=== PATIENT | female | born 1955 | race Caucasian/White ===

== ENCOUNTER → 2016-07-21 14:11 | Outpatient (CLI) | payer MEDICAID ==
[2016-02-01 13:14] VITALS: BMI 26.8
[~2016-07-21 14:11] MED LIST: ADVAIR HFA 230-12 GM INH; HYDROCODONE-APA1 TAB PO; NICODERM C1 PATCH .3 TRANSDERM; ORAPRED ODT10 MG/TAB PO; PROAIR HFA8.5 GM INH
== END | disposition home or self-care (01) ==
LOC: D.LABREF 14:11
DX: Z86.14 Personal history of Methicillin resistant Staphylococcus aureus infection (principal)

== ENCOUNTER 2016-11-04 16:17 | Inpatient (IN) | payer MEDICAID ==
[~2016-11-04] VITALS: Ht 157.5 cm; Wt 69.1 kg
[2016-11-04 17:02] LABS: BASOPHILS 2.3 % (0-2); EOSINOPHILS 3.8 % (0-7); HEMATOCRIT 43.4 % (36.0-48.0); HEMOGLOBIN 14.7 g/dL (12-16); IMMATURE GRANULOCYTES 0.4 % (0-5); LYMPHOCYTES 14.5 % (15-50); MCH 36.8 pg (26.0-34.0); MCHC 33.9 g/dL (31.0-37.0); MCV 108.5 fL (80.0-100.0); MONOCYTES 16.2 % (2-11); NEUTROPHILS 62.8 % (40-80); PLATELET COUNT 65 10x3/uL (130-400); RDW 13.9 % (11.5-14.5); WBC 5.6 10x3/uL (4.8-10.8)
[2016-11-04 17:15] LABS: ALBUMIN 3.3 g/dL (3.4-5.0); ALKALINE PHOSPHATASE 222 U/L (46-116); ALT (SGPT) 26 U/L (10-68); BILIRUBIN - TOTAL 2.74 mg/dL (0.2-1.3); CALC OSMOLALITY 278 mosm/kg (275-300); CARBON DIOXIDE 24.3 mmol/L (21.0-32.0); CHLORIDE - SERUM 103 mmol/L (98-107); CREATININE - SERUM 0.7 mg/dL (0.6-1.3); GLUCOSE 120 mg/dL (74-106); POTASSIUM - SERUM 3.8 mmol/L (3.5-5.1); PROTEIN - SERUM 8.8 g/dL (6.4-8.2); SODIUM 140 mmol/L (136-145); UREA NITROGEN 9 mg/dL (7-18); eGFR NON AFRICAN AMERICAN 90 mL/min (90-120)
[2016-11-04 18:05] LABS: PLATELET ESTIMATE DECREASED
--- NOTE | 2016-11-04 21:16 | NUR ---
arrived to room 2225 via wc accompained by family and hospital staff. resp even and unlabored at this time with O2 in use via high flow oxymizer @ 11 l/m. C/O abd pain rating 9/10. can can voice needs and wants. assessment completed. family at bedside. c/l in reach at bedside.
[2016-11-04 23:25] VITALS: Ht 157.5 cm; Wt 69.1 kg
[2016-11-05] VITALS: BP 142/74
[2016-11-05 04:00] VITALS: BP 135/79
--- NOTE | 2016-11-05 07:05 | NUR ---
PATIENT RECEIVED ALERT IN LOW GALVEZ POSITION. RESPIRATIONS EVEN AND UNLABORED. DENIES NEEDS. SIDE RAILS UP X2. BED IN LOW POSITION. CALL LIGHT IN REACH.
[2016-11-05 08:22] VITALS: BP 135/71
--- NOTE | 2016-11-05 11:14 | NUR ---
PATIENT ALERT IN BED WATCHING TV. NO SIGNS OF DISTRESS NOTED. NICOTINE PATCH PLACED ON RIGHT ARM. DENIES NEEDS. SIDE RAILS UP X2. BED IN LOW POSITION. CALL LIGHT IN REACH.
[2016-11-05] MEDS ORDERED: ATIVAN1 MG PO (11:20)
--- NOTE | 2016-11-05 13:00 | NUR ---
PATIENT OFF FLOOR VIA WHEELCHAIR WITH SISTER.
[2016-11-05 14:04] VITALS: BP 145/79
--- NOTE | 2016-11-05 14:25 | NUR ---
IV TO RIGHT WRIST PATENT. NO REDNESS OR INFLAMMATION NOTED. FLUSHES EASY. SCHEDULED SOLU-MEDROL ADMINISTERED. SIDE RAILS UP X2. BED IN LOW POSITION. CALL LIGHT IN REACH. FAMILY AT BEDSIDE.
--- NOTE | 2016-11-05 14:39 | NUR ---
PATIENT REQUESTING SOMETHING FOR SLEEP. DR COVARRUBIAS PAGED. RETURNED CALL. ORDER FOR MEGHA RECEIVED.
[2016-11-05 16:45] VITALS: BP 152/90
--- NOTE | 2016-11-05 18:00 | NUR ---
PATIENT UP AMBULATING IN HALLWAY WITH FAMILY. NO SIGNS OF DISTRESS NOTED.
[2016-11-05 20:22] VITALS: BP 142/80
--- NOTE | 2016-11-05 22:29 | NUR ---
PATIENT RESTING IN BED WITH NO VISIBLE SIGNS OF DISTRESS. NOTIFIED MNOAE HIGGINS THAT THE PATIENT WOULD LIKE HER AMBIEN. PATIENT DENIES OTHER NEEDS AT THIS TIME. BED IN LOWEST POSITION AND CALL LIGHT WITHIN REACH. ENCOURAGED THE PATIENT TO CALL IF SHE HAS FURTHER NEEDS.
--- NOTE | 2016-11-05 23:49 | NUR ---
PT WAS MEDICATED WITH AMBIEN PER REQUEST AT THIS TIME. WILL CONTINUE TO OBSERVE FOR NEEDS. C/L IN REACH AT BEDSIDE.
[2016-11-06] VITALS: BP 130/88
[2016-11-06 04:00] VITALS: BP 120/64
[2016-11-06 04:51] LABS: BASOPHILS 0 % (0-2); EOSINOPHILS 0 % (0-7); HEMATOCRIT 40.1 % (36.0-48.0); HEMOGLOBIN 13.5 g/dL (12-16); IMMATURE GRANULOCYTES 0.3 % (0-5); LYMPHOCYTES 2.9 % (15-50); MCH 36.3 pg (26.0-34.0); MCHC 33.7 g/dL (31.0-37.0); MCV 107.8 fL (80.0-100.0); MEAN PLATELET VOLUME 11.9 fL (7.4-10.4); MONOCYTES 5.7 % (2-11); NEUTROPHILS 91.1 % (40-80); PLATELET COUNT 56 10x3/uL (130-400); RBC 3.72 10x6/uL (4.00-5.40); RDW 13.8 % (11.5-14.5)
[2016-11-06 04:54] LABS: WBC 10.7 10x3/uL (4.8-10.8)
[2016-11-06 05:09] LABS: CALCIUM 9.1 mg/dL (8.5-10.1); CARBON DIOXIDE 26.4 mmol/L (21.0-32.0); CHLORIDE - SERUM 102 mmol/L (98-107); CREATININE - SERUM 0.7 mg/dL (0.6-1.3); MAGNESIUM - SERUM 1.9 mg/dL (1.8-2.4); POTASSIUM - SERUM 3.8 mmol/L (3.5-5.1); SODIUM 138 mmol/L (136-145); eGFR NON AFRICAN AMERICAN 90 mL/min (90-120)
[2016-11-06 05:10] LABS: CALC OSMOLALITY 282 mosm/kg (275-300); GLUCOSE 202 mg/dL (74-106); UREA NITROGEN 16 mg/dL (7-18)
--- NOTE | 2016-11-06 07:20 | NUR ---
PATIENT RECEIVED ALERT IN HIGH GALVEZ POSITION. RESPIRATIONS EVEN AND UNLABORED. ANTICIPATING GOING HOME TODAY. DENIES NEEDS. SIDE RAILS UP X2. BED IN LOW POSITION. CALL LIGHT IN REACH.
[2016-11-06 07:38] VITALS: BP 124/59
--- NOTE | 2016-11-06 08:18 | NUR ---
PATIENT ALERT IN HIGH GALVEZ POSITION. RESPIRATIONS EVEN AND UNLABORED. SCHEDULED MEDICATION ADMINISTERED. RT AT BEDSIDE. PATIENT PLACED ON 5L NASAL CANNULA. O2 AT 91%. SIDE RAILS UP X2. BED IN LOW POSITION. CALL LIGHT IN REACH.
--- NOTE | 2016-11-06 09:07 | NUR ---
PATIENT WAS WALKING IN HALLWAY SPO2 DROPPED TO 84% WHILE ON ROOM AIR. PATIENT PLACED BACK ON 9L OXIMIZER TO GET SPO2 BACK TO 91%.
--- NOTE | 2016-11-06 09:30 | NUR ---
PATIENT AMBULATED 250FT IN HALLWAY WITH STAFF. 02 AT 6L VIA NASAL CANNULA. 02 SAT REMAINED BETWEEN 85% AND 86%. PATIENT STATES THAT IS NORMAL FOR HER. ONCE BACK TO ROOM PATIENT SITTING ON SIDE OF 02 SAT RECOVERED TO 93% ON 5L O2 VIA NASAL CANNULA. GOGO DENISE PATIENT LAW INSTRUCTOR NOTIFIED AND WILL NOTIFY DR ALVAREZ
[2016-11-06] MEDS ORDERED: VIBRAMYCIN 100100 MG PO (09:53)
[2016-11-06] MEDS ORDERED: MEDROL DOSE PACK4 MG PO (09:54)
--- NOTE | 2016-11-06 10:30 | NUR ---
IV TO RIGHT WRIST D/C WITH CATH TIP INTACT. SITE COVERED WITH GAUZE AND BANDAID. ANTICIPATING D/C HOME.
--- NOTE | 2016-11-06 11:15 | NUR ---
Patient Name: BLANCA MCGILL Admission Status: ER Accout number: [id number] Admission Date: 11-04-2016 : 1955 Admission Diagnosis: Attending: AVERY Current LOS: 2 Anticipated DC Date: 11-06-2016 Planned Disposition: Home Primary Insurance: [place] PRIVATE OPTIONS VAN[place] Discharge Planning Comments: CM MET WITH PATIENT REGARDING D/C NEEDS AND PLANS. PATIENT STATED HER SISTER (NIMESH) WILL BE DRIVING HER HOME TODAY AT DISCHARGE. PATIENT STATED THERE ARE 5 STEPS W/ RAILS TO ENTER HOME AND NO STAIRS INSIDE. PATIENTS PCP IS DR. ALVAREZ AND PHARMACY IS [facility] [address]. PATIENT IS INDEPENDENT WITH HER CARE. PATIENT HAS OXYGEN AT HOME PROVIDED BY [facility] AND THEY ARE PROVIDING PORTABLE O2 TO PATIENT BEFORE DISCHARGE. PATIENT HAS REFUSED HOME HEALTH AND HAS NO OTHER NEEDS. CM WILL CONTINUE TO FOLLOW PATIENT WITH D/C NEEDS AND PLANS. PCP DR. ALVAREZ PHARMACY IS [facility] [address]- [phone] CASI PARSON (DAUGHTER) [phone] Polymerization Kettle Operator: Adina Riuz Is the patient Alert and Oriented? Yes 0 * How many steps to enter\exit or inside your home? 5 W/RAILS 0 * PCP DR. ALVAREZ 0 * Pharmacy [facility] [address] 0 * Preadmission Environment Home with Family 0 * ADLs Independent 0 * Equipment Oxygen 0 * List name and contact numbers for known caregivers / representatives who currently or will assist patient after discharge: CASI PARSON (DAUGHTER) [phone] 0 * Community resources currently utilized None 0 * Additional services required to return to the preadmission environment? Yes 0 * Can the patient safely return to the preadmission environment? Yes 0 * Has this patient been hospitalized within the prior 30 days at any hospital? No 0 Grand Total: 0
[2016-11-06 12:00] VITALS: BP 123/69
--- NOTE | 2016-11-06 12:23 | NUR ---
DISCHARGE INSTRUCTIONS COMPLETED WITH PATIENT. ENOURAGED PATIENT TO PURCHASE A PULSE OXYMETER. CHECKED OXYGEN SATURATION 91% ON 4L/ NASAL CANNULA. PATIENT AND FAMILY ALL DENY QUESTIONS.
== END 2016-11-06 12:23 | disposition home or self-care (01) | DRG 191 ==
LOC: D.ER 16:17 → D.MS 19:52
PROVIDERS: Emergency Medicine; Family Medicine; ADMIT Family Medicine
DX: J44.1 Chronic obstructive pulmonary disease with (acute) exacerbation (principal); C34.90 Malignant neoplasm of unspecified part of unspecified bronchus or lung; R09.02 Hypoxemia; F17.200 Nicotine dependence, unspecified, uncomplicated

== ENCOUNTER 2017-03-12 11:34 | Inpatient (IN) | payer MEDICAID ==
[~2017-03-12] VITALS: Ht 157.5 cm; Wt 71.2 kg
[~2017-03-12 11:34] MED LIST changes: +ATIVAN1 MG PO; +MEDROL DOSE PACK4 MG PO; +VIBRAMYCIN 100100 MG PO
[2017-03-12] MEDS ORDERED: ADVAIR HFA [SP]12 GM INH (12:01)
--- NOTE | 2017-03-12 12:15 | NUR ---
ARRIVE TO ROOM VIA WHEELCHAIR FROM DOCTOR'S OFFICE. COMPLAINS OF CHEST PAIN. CLAIMS DOG JUMPED ON CHEST DISLODGING RT CHEST IP RESULTING IN SEVERE CHEST PAIN AND DYSPNEA. O2 SAT 82% ON 5L NC. REQUEST RESPIRATORY ASSISTANCE. NON REBREATHER MASK PLACED AT 15L TO INCREASE O2 AT 94%. TAKEN TO CT SCAN ORDERED. CONTINUE PLAN OF CARE. AND ADMISSION PROCESS.
[2017-03-12 12:19] LABS: BASOPHILS 0.8 % (0-2); EOSINOPHILS 3.2 % (0-7); HEMATOCRIT 40.2 % (36.0-48.0); HEMOGLOBIN 13.3 g/dL (12-16); LYMPHOCYTES 18.9 % (15-50); MCH 33.3 pg (26.0-34.0); MCHC 33.1 g/dL (31.0-37.0); MCV 100.5 fL (80.0-100.0); MEAN PLATELET VOLUME 10.1 fL (7.4-10.4); MONOCYTES 3.6 % (2-11); NEUTROPHILS 73.5 % (40-80); RDW 14.7 % (11.5-14.5)
[2017-03-12 12:27] LABS: PLATELET COUNT 68 10x3/uL (130-400)
[2017-03-12 12:43] LABS: ALBUMIN 3.5 g/dL (3.4-5.0); ALKALINE PHOSPHATASE 211 U/L (46-116); ALT (SGPT) 19 U/L (10-68); BILIRUBIN - TOTAL 3.02 mg/dL (0.2-1.3); CALC OSMOLALITY 277 mosm/kg (275-300); CALCIUM 9.3 mg/dL (8.5-10.1); CARBON DIOXIDE 20.3 mmol/L (21.0-32.0); CHLORIDE - SERUM 106 mmol/L (98-107); CREATININE - SERUM 0.7 mg/dL (0.6-1.3); POTASSIUM - SERUM 4.2 mmol/L (3.5-5.1); PROTEIN - SERUM 7.8 g/dL (6.4-8.2); SODIUM 139 mmol/L (136-145); UREA NITROGEN 10 mg/dL (7-18); eGFR NON AFRICAN AMERICAN 90 mL/min (90-120)
[2017-03-12 12:44] LABS: GLUCOSE 122 mg/dL (74-106)
[2017-03-12 13:34] VITALS: BP 122/68
[2017-03-12 17:28] VITALS: BP 154/81
[2017-03-12 17:58] VITALS: BP 122/68; BMI 15.2
[2017-03-12 19:00] VITALS: BP 96/63
[2017-03-12 19:44] LABS: ERYTHROCYTE SEDIMENTATION RATE 38 mm/hr (0-30)
--- NOTE | 2017-03-12 21:57 | NUR ---
DR. ANDREA NOTIFIED OF D-DIMER GREATER THAN 20. NO NEW ORDERS. PT EDUCATED ON RISKS OF REFUSING LOVENOX INJECTION WITH A LAB VALUE OF THIS HIGH AND AGREES TO TAKE THE SHOT. LOVENOX 60MG GIVEN TO LUQ.
[2017-03-13] VITALS: BP 110/63
--- NOTE | 2017-03-13 02:53 | NUR ---
CALL LIGHT IN REACH, WILL CONTINUE WITH PLAN OF CARE.
[2017-03-13 04:00] VITALS: BP 146/92
--- NOTE | 2017-03-13 05:09 | NUR ---
INFUSAPORT ACCESSED TO RIGHT SHOULDER. 3/4" NEEDLE USING STERILE TECHNIQUE. LAB OBTAINED. DILAUDID 1MG IVP GIVEN FOR PAIN 7:10. CALL LIGHT IN REACH. WILL CONTINUE TO MONITOR.
[2017-03-13 07:01] LABS: ALKALINE PHOSPHATASE 192 U/L (46-116); ALT (SGPT) 18 U/L (10-68); BILIRUBIN - TOTAL 2.69 mg/dL (0.2-1.3); CALC OSMOLALITY 283 mosm/kg (275-300); CALCIUM 8.9 mg/dL (8.5-10.1); CHLORIDE - SERUM 106 mmol/L (98-107); CREATININE - SERUM 0.7 mg/dL (0.6-1.3); GLUCOSE 161 mg/dL (74-106); POTASSIUM - SERUM 4.2 mmol/L (3.5-5.1); PROTEIN - SERUM 7.4 g/dL (6.4-8.2); SODIUM 141 mmol/L (136-145); UREA NITROGEN 12 mg/dL (7-18); eGFR NON AFRICAN AMERICAN 90 mL/min (90-120)
[2017-03-13 08:00] VITALS: BP 130/73
[2017-03-13 08:02] LABS: BASOPHILS 0.4 % (0-2); EOSINOPHILS 0.2 % (0-7); HEMATOCRIT 37.8 % (36.0-48.0); HEMOGLOBIN 11.9 g/dL (12-16); IMMATURE GRANULOCYTES 0.2 % (0-5); LYMPHOCYTES 4.6 % (15-50); MCH 32.2 pg (26.0-34.0); MCHC 31.5 g/dL (31.0-37.0); MCV 102.4 fL (80.0-100.0); MEAN PLATELET VOLUME 11.6 fL (7.4-10.4); NEUTROPHILS 92.6 % (40-80); PLATELET COUNT 64 10x3/uL (130-400); RBC 3.69 10x6/uL (4.00-5.40); RDW 14.8 % (11.5-14.5); WBC 5.4 10x3/uL (4.8-10.8)
[2017-03-13 12:00] VITALS: BP 121/73
[2017-03-13 16:00] VITALS: BP 115/61
[2017-03-13 19:00] VITALS: BP 133/71
--- NOTE | 2017-03-13 19:30 | NUR ---
RECIEVED PT IN BED AAOX4 DEINIES ANY NEEDS OR DISCOMFORT NAD NOTED
--- NOTE | 2017-03-13 19:30 | NUR ---
RECEIVED PT IN BED AAOX4 RESP UNLABORED DENIES ANY NEEDS OR DISCOMFORT NAD NOTED
[2017-03-14 04:00] VITALS: BP 127/74
--- NOTE | 2017-03-14 08:45 | NUR ---
Report recieved from RN. Pt to move to 2100.
--- NOTE | 2017-03-14 09:28 | NUR ---
ALERT AND ORIENTED X4. INITIATE PAIN MANAGEMENT. CHANGE DILAUDID TO AIRPORT OPERATIONS SUPERVISOR PER . SHINGLES OUT BREAK. MOVE TO ROOM 210 NEGATIVE PRESSURE ROOM. MONAE MARTINEZ RESUMES PLAN OF CARE.
[2017-03-14 11:18] LABS: ANA REFLEX - DIRECT Negative (Negative)
[2017-03-14 12:00] VITALS: BP 124/68
--- NOTE | 2017-03-14 12:54 | NUR ---
Requested RN to initiate PAN SHOVER for pt pain needs.
--- NOTE | 2017-03-14 13:26 | NUR ---
Spoke to Valente in pharmacy to request saline nasal spray.
--- NOTE | 2017-03-14 13:28 | NUR ---
INITIATED PTS IV STRAIGHT KNIFE CUTTER MACHINE PUMP ORDERED. PT GRIMANCING FOR PAIN 04/10 ALSO PROVIDED BOLUS DOSE OF 0.4MG STRAIGHT KNIFE CUTTER MACHINE DILAUDID. PUMP INFUSING VIA R.CHEST IP. PT VOICED THANKS AND DENIES ANY FURTHER NEEDS AT THIS TIME. WILL CTM.
--- NOTE | 2017-03-14 13:46 | NUR ---
Pt states she is pain free at this moment after receiving bolus from CALTRANS EQUIPMENT OPERATOR when it was initiated. Family present at bedside, therapy administrative assistant present to ambulate pt within room. VICE PRESIDENT PROCESS on her way in with requested clean linens to change bed and provide supplies for pt to bathe with daughters assistance, per request.
[2017-03-14 16:00] VITALS: BP 127/66
--- NOTE | 2017-03-14 18:30 | NUR ---
PRN Zofran given IV for c/o nausea with 1 episode of emesis.
[2017-03-14 19:00] VITALS: BP 147/94
--- NOTE | 2017-03-14 19:00 | NUR ---
REPORT RECIEVED, SHIFT ASSESSMENT COMPLETE, PLEASE SEE FLOW SHEETS FOR DETAILS. DAUGHTER AT BEDSIDE, ALL QUESTIONS ANSWERED TO BEST OF ABILITY. PT DENIES PAIN/NEEDS ATT. STATES HER DAUGHTER IS GOING TO HELP HER GET A BEDBATH. BED LOW AND LOCKED, CALL LIGHT IN REACH. WILL CPOC.
[2017-03-15] VITALS: BP 127/76
--- NOTE | 2017-03-15 02:59 | NUR ---
2030 DAUGHTER CAME OUT OF ROOM TO NOTIFY ME THAT HER MOTHER (THE PATIENT) NEEDED TO USE THE REST ROOM. OFFERED A BEDPAN AND EXPLAINED HOW TO USE, DAUGHTER THEN BECAME UPSET STATING THAT HER MOTHER HAD BEEN HERE FOR THREE DAYS AND THAT SHE HAD "NOT BEEN GETTING THE CARE THAT SHE SHOULD". APPOLOGIZED TO THE DAUGHTER STATING I WAS TRYING TO GET HER MEDS TOGETHER FIRST AND DAUGHTER STATED "THIS KIND OF STUFF ISN'T MY JOB". I THEN ASKED THE DAUGHTER TO GO BACK TO HER MOTHERS ROOM AND WAIT FOR ME AND I WOULD BE RIGHT THERE. RETRIEVED A BED ELIZABETH AND DRESSED DOWN IN ANTI-ROOM, DAUGHTER ENTERED ANTI-ROOM BEFORE I WAS DRESSED DOWN AND SAID SHE WOULD PROVIDE THE BED ELIZABETH, INFORMED HER THAT IT WAS NOT A PROBLEM AND THAT I WOULD DO IT. UPON ENTERING THE ROOM, PATIENT WAS OUT OF BED AND STANDING ON HER OWN BESIDE BED HOLDING ONTO HER IV POLE. SHE STATED SHE WOULD NOT USE THE BEDPAN AND WANTED TO USE THE RESTROOM. I ASKED IF SHE COULD MANAGE WITHOUT HER OXYGEN AND SHE SAID SHE HAD "JUST HAD IF OFF" AND "YES" SHE COULD. SHE THEN WALKED TO THE RESTROOM AND SAT ON THE TOILET, SHE THEN BECAME UPSET FOR NO APPARENT REASON, SHE WAS STATING SHE DIDNT WANT ANYONE UPSET, I INFORMED HER THAT I WAS NOT AND HER DAUGHTER SAID SHE WAS NOT, THEN PATIENT STARTED TO HYPERVENTILATE. PULLED VAPOTHERM OVER TO HER AND PUT IT BACK ON. I ADVISED HER TO STAY ON THE TOILET TO CATCH HER BREATH AND CALM DOWN. SHE REFUSED TO STAY THERE AND GOT OFF THE TOILET AND MOVED TO THE BED. SUGGESTED DEEP BREATHS AND SHE STATED SHE INVISIONS DR DENNY HE TAUGHT HER HER DEEP BREATHING EXERCISES. ONCE CALM, SHE GOT ALL THE WAY INTO BED AND SEEMED OKAY. ASKED IF THERE WAS ANYTHING ELSE I COULD DO FOR HER AND SHE STATED NO. ASKED AGAIN AND SHE AGAIN SAID NO. 2129 CALL LIGHT ANSWERED AND LOAN REVIEW MANAGER PUMP ACTING UP, FIXED ISSUE AND PT HAS NO OTHER NEEDS. 2199 PATIENT REQUESTED SOMETHING TO EAT FOR HER DAUGHTER, A SANDWICH WAS PROIVIDED AND JUICES X2 PROVIDED TO PT. 2229 DAUGHTER STATED SHE WAS LEAVING, INFORMED HER AND THE PATIENT THAT I WOULD DO MY BEST TO HELP HER THROUGHOUT THE NIGHT. BOTH SEEMED SATISFIED.
--- NOTE | 2017-03-15 03:13 | NUR ---
0115 CHECKED IN ON PT, SLEEPING QUIETLY, NO S&S OF ACUTE DISTRESS NOTED. WILL CPOC.
[2017-03-15 04:00] VITALS: BP 140/76
--- NOTE | 2017-03-15 06:20 | NUR ---
PT C/O NAUSEA, GAVE ZOFRAN PER ORDERS.
--- NOTE | 2017-03-15 07:56 | NUR ---
AM ROUNDS - PT IN BED AGGITATED, ASKING FOR HER ZOFRAN. PT IS DUE FOR HER ZOFRAN AT 1000. EXPLAINED TO PT THAT IS WAS TOO EARLY AND WHEN SHE BECOMES NAUSIOUS OR IS TIME FOR HER ZOFRAN TO PLEASE USE HER CALL HERNANDEZ AND I WOULD BRING HER THE ZOFRAN. PT BECAME VERY UPSET DEMANDING THAT I WILL BRING IT AT 1000 AND STATING THAT HER CALL HERNANDEZ DOES NOT WORK. I REASSURED THE PT THAT HER CALL HERNANDEZ DOES WORK AND SOMEONE WOULD ANSWER HER CALL HERNANDEZ SOON THEY COULD EVERY TIME SHE USES THE CALL HERNANDEZ. PT STATED SHE UNDERSTOOD BUT CONTINUED TO BE DEMANDING AND DID NOT APPEAR TO UNDERSTAND ANYTHING THAT I WAS ASKING HER TO DO, USE CALL HERNANDEZ WHEN SHE NEEDS/WANTS HER ZOFRAN. PT YELLED "GET OUT OF MY ROOM". I LEFT ROOM AND NOTIFIED JAZMIN, CAREER SERVICES COORDINATOR, OF SITUATION. PT IS ON 100% O2 AT THIS TIME. RESEARCH LABORATORY TECHNICIAN PUMP WITH DILAUDID AND NS @ 50CC/HR. PT IS ON DROPLET ISOLATION. UP AD SOFIA. WILL CONTINUE TO MONITOR.
[2017-03-15 08:00] VITALS: BP 151/85
[2017-03-15 11:57] VITALS: BP 125/83
--- NOTE | 2017-03-15 12:22 | EC ---
PATIENT:BLANCA MCGILL DATE OF SERVICE: 03/12/17 SEX: F MEDICAL RECORD: [id number] DATE OF : [birth year] LOCATION:D.M2 D.210 AGE OF PATIENT: 61 ADMISSION DATE: 03/12/17 REFERRING PHYSICIAN: INTERPRETING PHYSICIAN: SB ARRIETA MD ECHOCARDIOGRAM REPORT ECHO CHARGES 4 ECHO COMPLETE CLINICAL DIAGNOSIS: BUBBLE STUDY TO ASSESS FOR SEPTAL DEFECTS, SOB/CHEST ECHOCARDIOGRAPHIC MEASUREMENTS (adult normal given) AC root (d.<3.7cm) 3.5 cm LV Septum d (<1.2 cm> 1.2 cm Valve Excursion 1.9 cm LV Septum (systole) 1.6 cm Left Atria (s.<4.0cm> 3.9 cm LVPW d(<1.2cm) 1.5 cm RV (d.<2.3cm) 3.6 cm LVPW (sytole) 1.6 cm LV diastole(<5.6CM) 5.1 cm MV E-F(>70mm/sec) cm LV systole 3.4 cm LVOT Diameter 1.7 cm MV exc.(>10mm) 1.6 cm Est.ejection fraction (50-75%) % Pericardial Effusion N DOPPLER: LVIT cm/sec A 128 cm/sec E 93.0 cm/sec LA cm/sec RVSP 25 mmHg LVOT 135 cm/sec AOP1/2T m/s Asc. Ao 190 cm/sec RVOT 109 cm/sec RA cm/sec PA 178 cm/sec AV Gradient Peak 14.39mmHg AV Mean 8.44 mmHg AV Area 1.6 cm MV Gradient Peak 8.93 mmHg MV Mean 3.56 mmHg MV Area cm COMMENTS: Map Mounter: Mihcaela NG Manager Of Compensation: 3 Dr. Laws TAPE# PACS DATE OF SERVICE: 03/13/2017 Echocardiogram FINDINGS: 1. Left ventricular chamber size is within normal limits. Left ventricular systolic function is normal. Overall ejection fraction estimated at 60%. 2. Left atrium, right atrium, and right ventricular chamber sizes are within normal limits. 3. Valvular structures have normal structure and motion. ECHOCARDIOGRAM REPORT [id number] BLANCA MCGILL 4. Doppler interrogation only reveals mild tricuspid regurgitation. No other valvular insufficiency or stenosis and pulmonary systolic pressure is normal estimated at 25 mmHg. 5. Bubble study was performed and does appear to be a very small VSD, just a few bubbles in the left ventricle. This would be a minimal right to left shunt, no VSD, however, is visualized structurally or on color flow. TRANSINT:[id number] Voice Confirmation ID: [id number] DOCUMENT ID: [id number] SB ARRIETA MD at 1222 CC: [id number] DICTATION DATE: 03/13/17 1539 SECURITY RESEARCHER: 03/13/17 2042 ADM IN [place] [id number] [place] [id number]
[2017-03-15 12:42] VITALS: Ht 157.5 cm; Wt 71.2 kg
--- NOTE | 2017-03-15 14:34 | NUR ---
SPOKE WITH DR ANDREA ABOUT THE PATIENTS TRANSFER TO [facility]. PER HIS REQUEST THE CALL CENTER WAS REACHED AT [phone]. DISCUSSED THE NEED FOR TRANSFER OF PATIENT AND DR ANDREA'S CELL NUMBER WAS GIVEN TO CAMPO[place]O A MEANS TO REACH HIM. REASON FOR TRANSFER IS PSV DEVECT THAT CAN'T BE FIXED HERE .
[2017-03-15 16:00] VITALS: BP 108/62
--- NOTE | 2017-03-15 16:47 | NUR ---
PT SPO2 WAS 77 THIS AM ON VAPOTHERM OF 40LPM,100% PAGED HE ASK ME TO GET A BLOOD GAS. GOT PT SPO2 UP TO 84 AND STATED TO WATCH PT AND LET HIM KNOW. PT SPO2 HAS BEEN 77-79% ALL DAY. SAID TO PUT PT ON BIPAP AND PT REFUSED THE BIPAP. DR ANDREA ORDERED EZPAP Q4 WITH HER ALBUTEROL TX AND PT REFUSED HER EZPAP STATED THEY MADE HER DIZZY, SHE ALSO STATED SHE DIDNT WANT TO BE INTUBATED HERE AND SHE WANTED TO BE TRANSFERRED TO [facility]. LAST CHECK PT SPO2 WAS 79%
--- NOTE | 2017-03-15 16:53 | NUR ---
Patient Name: BLANCA MCGILL Admission Status: Urgent Accout number: [id number] Admission Date: 03-12-2017 : 1955 Admission Diagnosis:UNSPECIFIED ABDOMINAL PAIN Attending: JAYMIE ALVAREZ Current LOS: 3 Anticipated DC Date: 03-15-2017 Planned Disposition: Acute Care Hospital Primary Insurance: [facility] PRIVATE OPTIONS VANITA Discharge Planning Comments: * Is the patient Alert and Oriented? Yes 0 * How many steps to enter\exit or inside your home? 4 0 * PCP DR. ALVAREZ 0 * Pharmacy [facility] [address] 0 * Preadmission Environment Home Alone 0 * ADLs Independent 0 * Equipment Oxygen 0 * Other Equipment HOME OXYGEN ONLY [facility] 0 * List name and contact numbers for known caregivers / representatives who currently or will assist patient after discharge: FEMI RAMIREZ, DTR, CASI PARSON, DTR, 0 * Community resources currently utilized None 0 * Please name any agencies selected above. NONE 0 * Additional services required to return to the preadmission environment? Yes * Can the patient safely return to the preadmission environment? Yes 0 * Has this patient been hospitalized within the prior 30 days at any hospital? No 0 CM RECEIVED ORDER FROM DR. ANDREA TO DISCUSS [facility] TRANSFER WITH PT. CM MET WITH PT AND BOTH DAUGHTERS IN ROOM TO DISCUSS DISCHARGE PLANNING AND NEEDS. PT REPORTS LIVING AT HOME INDEPENDENTLY AND ALONE. PT HAS HOME OXYGEN FROM [facility] AND NO OUTSIDE SERVICES ASSISTING IN THE HOME. CM DISCUSSED AVAILABILITY OF HOME HEALTH, REHAB SERVICES AND MEDICAL EQUIPMENT. PT WOULD LIKE TO BE TRANSFERRED TO [facility] FOR CARE, REPORTS HER DOCTORS ARE THERE, REPORTS HER FAMILY WILL PICK HER UP FOR DISCHARGE HOME. CM NOTIFIED RN AIDA ABURTO WHO CONTACTED DR. ANDREA REGARDING [facility] TRANSFER. Drug Safety Scientist: Betito Chen
--- NOTE | 2017-03-15 17:22 | NUR ---
Patient Name: BLANCA MCGILL Encounter No: [id number] : 1955 Primary Insurance: [place] PRIVATE OPTIONS VAN[place] Anticipated DC Date: 03-15-2017 Planned Disposition: Acute Care Hospital External Planned Provider: GIANNANJJEANNE DCP follow-up note: CM SPOKE TO DR. ANDREA WHO ADVISED THAT HE HAS SPOKEN TO DR. ZOLTAN LOUISE OF [facility] WHO HAS ACCEPTED PT AND FOR TRANSFER, SEND WITH PT: COPY OF CHART / DISK OF ECHO, DISK OF CT AND XRAYS SEND PT ON 100% NON REBREATHER PT AND FAMILY NOTIFIED IN ROOM, ALL IN AGREEMENT WITH TRANSFER TO [facility]. BEDSIDE NURSE AND DENTURE PROCESSOR NURSE NOTIFIED. [facility] TRANSFER TEAM TO CALL MED 2 WHEN BED IS AVAILABLE AND PROVIDE FURTHER TRANSFER INSTRUCTIONS. Betito Chen, CASE MANAGEMENT
--- NOTE | 2017-03-15 18:36 | NUR ---
PT SITTING IN BED WITH FAMILY AT BEDSIDE WITH NO NEEDS AT THIS TIME. WILL CONTINUE OT MONITOR
--- NOTE | 2017-03-15 19:44 | NUR ---
PT IN BED FAMILY AT BEDSIDE. ANSWERED QUESTIONS PT HAD REGARDING DISCHARGE TO [facility]. DENIES FURTHER NEEDS AT THIS TIME WILL CONTINUE TO MONITOR.
--- NOTE | 2017-03-15 20:34 | NUR ---
SPO2 WAS 75% HR 115 PUT PATIENT ON BIPAP. 15 100%
--- NOTE | 2017-03-16 00:06 | NUR ---
report called to reginald soria at 0005 will send pt to [facility] via ambulance
--- NOTE | 2017-03-16 01:52 | NUR ---
PT LEFT FLOOR AT HIS TIME ACCOMNPANIED BY SURVIVAL FLIGHT CREW
--- NOTE | 2017-03-16 08:25 | CN ---
PATIENT NAME:BLANCA MCGILL MEDICAL RECORD: [id number] : [birth year] LOCATION:D. D.2101 ADMIT DATE: 03/12/17 ACCOUNT: [id number] CONSULTING PHYSICIAN: SUZI ELENA MD REFERRING PHYSICIAN: JAYMIE ALVAREZ DO DATE OF CONSULTATION: 03/14/2017 CARDIOVASCULAR CONSULTATION. HISTORY OF PRESENT ILLNESS: A 61-year-old female with no known cardiovascular history. She has a history of lung carcinoma status post chemoradiation therapy. She has been having intermittent chest pain. 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 At that point, she had outbreak of shingles that explained chest pain. We are asked to see her concerning her cardiovascular status. PAST MEDICAL HISTORY: Includes: 1. History of lung carcinoma. 2. Obstructive pulmonary disease, O2 dependent. ALLERGIES: NITROUS OXIDE. HOME MEDICATIONS: Include Albuterol 2 puffs q.6 hours, previous Medrol Dosepak. SOCIAL HISTORY: She smokes every day. She does exercise, hiking, etcetera up until recently. Nondrinker. She is able to take care of her ADLs. REVIEW OF SYSTEMS: The patient reports easy bruising but reports no swollen glands. The patient reports no fever, no night sweats, no significant weight gain, no significant weight loss. No significant exercise tolerance. The patient reports no dry eyes, no irritation, no vision change. Patient reports no difficulty hearing and no ear pain. Patient reports no frequent nose bleeds or nose and sinus problems. Patient reports on arm pain on exertion. No shortness of breath while lying down. No history of heart murmur. Patient reports no cough, no wheezing or coughing up blood. Patient reports no abdominal pain, no vomiting. Normal appetite. No diarrhea and not vomiting blood. No nausea and no constipation. Patient reports no incontinence. No difficulty urinating. No hematuria. No increased frequency. Patient reports no muscle aches. No weakness, no arthralgias, no back pain. No swelling of the extremities. Patient reports no abnormal mole, no jaundice, no rashes. Reports no loss of consciousness. No weakness and no numbness. No seizures, dizziness, or headaches. The patient reports no depression, no sleep disturbance, feeling safe in a relationship and no alcohol abuse. Patient reports on fatigue. Reports no runny nose or sinus pressure. No itching, no hives, and no frequent sneezing. PHYSICAL EXAMINATION: GENERAL: Pleasant female in no acute distress, alert and oriented. VITAL SIGNS: Blood pressure 124/74, pulse 88 and regular. HEENT: Normocephalic an atraumatic. NECK: No JVD or bruit. HEART: Regular, II/ systolic ejection murmur. Suspect a flow murmur with no significant valve pathology via echo. LUNGS: Prolonged expiratory phase, few expiratory wheezes. CONSULT REPORT [id number] BLANCA MCGILL ABDOMEN: Soft and nontender. EXTREMITIES: Pulses well preserved, 2+. No edema. NEUROLOGIC: Grossly intact. DIAGNOSTIC DATA: ECG shows sinus rhythm and sinus tachycardia. No ST-T changes. IMPRESSION: Incidental VSD, probable flow murmur on exam, doubt ischemic pain given prolonged episode, normal wall motion and no evidence of enzymes. Agree with current management. Thank you for the consultation. TRANSINT:[id number] Voice Confirmation ID: [id number] DOCUMENT ID: [id number] SUZI ELENA MD at 0825 CC: [id number] DICTATION DATE: 03/14/17 0847 SHAKE CUTTER: 03/14/17 1048 DIS IN 03/16/17 [facility] [address] [place] [address]
== END 2017-03-16 01:53 | disposition short-term general hospital (02) | DRG 189 ==
LOC: D.M2 11:34 → D.SDCHOLD 16:06 → D.M2 16:07
PROVIDERS: Internal Medicine Pulmonary Disease; ADMIT Family Medicine
PROC: 5A09357 Assistance with Respiratory Ventilation, Less than 24 Consecutive Hours, Continuous Positive Airway Pressure (ICD-10-PCS; principal; 2017-03-15)
DX: J96.21 Acute and chronic respiratory failure with hypoxia (principal); B15.9 Hepatitis A without hepatic coma; J44.1 Chronic obstructive pulmonary disease with (acute) exacerbation; Q21.0 Ventricular septal defect; Z85.118 Personal history of other malignant neoplasm of bronchus and lung; F32.9 Major depressive disorder, single episode, unspecified; F41.9 Anxiety disorder, unspecified; R04.0 Epistaxis; J84.10 Pulmonary fibrosis, unspecified; B02.9 Zoster without complications; F17.200 Nicotine dependence, unspecified, uncomplicated; Z99.81 Dependence on supplemental oxygen; I07.1 Rheumatic tricuspid insufficiency; K74.60 Unspecified cirrhosis of liver